=== PATIENT | male | born 1985 | race Two or more races ===

== ENCOUNTER 2019-12-05 01:41 | Emergency (ER) | payer SELFPAY ==
[2019-12-05 01:54] VITALS: BP 137/81
[2019-12-05 02:11] LABS: APPEARANCE,URINE CLOUDY; BILIRUBIN,URINE NEGATIVE (NEGATIVE); COLOR,URINE YELLOW; GLUCOSE, URINE NEGATIVE (NEGATIVE); KETONES,URINE NEGATIVE (NEGATIVE); LEUKOCYTE ESTERASE,URINE NEGATIVE (NEGATIVE); NITRITE,URINE NEGATIVE (NEGATIVE); PROTEIN,URINE NEGATIVE (NEGATIVE); URINE SPECIFIC GRAVITY 1.012; UROBILINOGEN,URINE NEGATIVE mg/dL (<2.0)
[2019-12-05 02:28] LABS: ABSOLUTE EOSINOPHILS # (AUTO) 0.2 10^3/uL (0.0-0.6); ABSOLUTE LYMPHOCYTES (AUTO) 1.8 10^3/uL (0.5-4.7); ABSOLUTE MONOCYTES (AUTO) 0.4 10^3/uL (0.1-1.4); ABSOLUTE NEUT (AUTO) 3.1 10^3/uL (1.7-8.2); BASOPHILS % (AUTO) 0.6 % (0-2); EOSINOPHILS % (AUTO) 4.3 % (0-6); HEMATOCRIT 41.3 % (37.9-51.0); HEMOGLOBIN 15.1 g/dL (13.5-17.0); LYMPHOCYTES % (AUTO) 31.6 % (13-45); MEAN CORPUSCULAR HEMOGLOBIN 32.3 pg (27.0-33.4); MEAN CORPUSCULAR HGB CONC 36.5 g/dL (32.0-36.0); MEAN CORPUSCULAR VOLUME 89 fl (80-97); MONOCYTES % (AUTO) 7.5 % (3-13); PLATELET COUNT 237 10^3/uL (150-450); RED BLOOD COUNT 4.66 10^6/uL (4.35-5.55); TOTAL CELLS COUNTED % (AUTO) 100 %; WHITE BLOOD COUNT 5.6 10^3/uL (4.0-10.5)
[2019-12-05 02:36] LABS: ALBUMIN 4.3 g/dL (3.5-5.0); ALKALINE PHOSPHATASE 71 U/L (38-126); ANION GAP 8 (5-19); ASPARTATE AMINO TRANSFERASE 29 U/L (17-59); BILIRUBIN,TOTAL 0.5 mg/dL (0.2-1.3); BLOOD UREA NITROGEN 13 mg/dL (7-20); CALCIUM 9.2 mg/dL (8.4-10.2); CARBON DIOXIDE 29 mmol/L (22-30); CHLORIDE 102 mmol/L (98-107); GLUCOSE 100 mg/dL (75-110); POTASSIUM 4.3 mmol/L (3.6-5.0); TOTAL PROTEIN 7.7 g/dL (6.3-8.2)
== END 2019-12-05 02:51 | disposition left against medical advice (07) ==
LOC: ER 01:41
DX: Z53.21 Procedure and treatment not carried out due to patient leaving prior to being seen by health care provider (principal)
CPT/HCPCS: 36415; 80053; 81001; 83690; 85025

== ENCOUNTER 2020-08-05 02:49 | Emergency (ER) | payer SELFPAY ==
[2020-08-05 04:21] LABS: APPEARANCE,URINE CLOUDY; BILIRUBIN,URINE NEGATIVE (NEGATIVE); COLOR,URINE YELLOW; GLUCOSE, URINE NEGATIVE (NEGATIVE); KETONES,URINE NEGATIVE (NEGATIVE); LEUKOCYTE ESTERASE,URINE NEGATIVE (NEGATIVE); NITRITE,URINE NEGATIVE (NEGATIVE); PROTEIN,URINE NEGATIVE (NEGATIVE); URINE SPECIFIC GRAVITY 1.016; UROBILINOGEN,URINE NEGATIVE mg/dL (<2.0)
[2020-08-05 04:27] LABS: ABSOLUTE EOSINOPHILS # (AUTO) 0.1 10^3/uL (0.0-0.6); ABSOLUTE LYMPHOCYTES (AUTO) 1.1 10^3/uL (0.5-4.7); ABSOLUTE MONOCYTES (AUTO) 0.3 10^3/uL (0.1-1.4); ABSOLUTE NEUT (AUTO) 4.9 10^3/uL (1.7-8.2); BASOPHILS % (AUTO) 0.5 % (0-2); EOSINOPHILS % (AUTO) 1.1 % (0-6); HEMATOCRIT 43.3 % (37.9-51.0); HEMOGLOBIN 15.2 g/dL (13.5-17.0); LYMPHOCYTES % (AUTO) 17.2 % (13-45); MEAN CORPUSCULAR HGB CONC 35.2 g/dL (32.0-36.0); MEAN CORPUSCULAR VOLUME 88 fl (80-97); MONOCYTES % (AUTO) 5.2 % (3-13); PLATELET COUNT 219 10^3/uL (150-450); RED BLOOD COUNT 4.91 10^6/uL (4.35-5.55); RED CELL DISTRIBUTION WIDTH 12.6 % (11.5-14.0); TOTAL CELLS COUNTED % (AUTO) 100 %; WHITE BLOOD COUNT 6.4 10^3/uL (4.0-10.5)
[2020-08-05 04:45] LABS: ALBUMIN 4.6 g/dL (3.5-5.0); ALKALINE PHOSPHATASE 75 U/L (38-126); ANION GAP 8 (5-19); ASPARTATE AMINO TRANSFERASE 38 U/L (17-59); BILIRUBIN,DIRECT 0.2 mg/dL (0.0-0.4); BILIRUBIN,TOTAL 0.7 mg/dL (0.2-1.3); BLOOD UREA NITROGEN 13 mg/dL (7-20); CALCIUM 9.7 mg/dL (8.4-10.2); CARBON DIOXIDE 29 mmol/L (22-30); CHLORIDE 99 mmol/L (98-107); GLUCOSE 118 mg/dL (75-110); POTASSIUM 4.7 mmol/L (3.6-5.0); TOTAL PROTEIN 7.8 g/dL (6.3-8.2)
--- NOTE | 2020-08-05 07:11 | ER Document Report ---
Entered by SHARON SOLORIO SCRIBE 08/05/20 0658 Acting as scribe for:ARLENE VILLALBA MD ED GI/ - General Chief Complaint: Abdominal Pain Stated Complaint: ABDOMINAL PAIN ALL OVER Time Seen by Provider: 08/05/20 06:56 Primary Care Provider: JUSTINA LATIF MD [Primary Care Provider] - Follow up as needed Mode of Arrival: Ambulatory Information source: Patient Notes: This 34 year old male patient with a history of gastritis and GERD presents to the ED today with complaints of RUQ abdominal pain that started after eating rice and cactus for dinner around 1900 last night. Patient states that there is no spice involved with the meal and that he eats it often without any prior issues. He reports that the pain radiates towards his back, but denies nausea, vomiting, fever, or chills. Denies history of any gallbladder issues. TRAVEL OUTSIDE OF THE [place] IN LAST 30 DAYS: No - Related Data Allergies/Adverse Reactions: No Known Allergies Allergy (Verified 08/05/20 03:23) Past Medical History - General Information source: Patient, [facility] Records - Social History Smoking Status: Never Smoker Cigarette use (# per day): No Chew tobacco use (# tins/day): No Smoking Education Provided: No Frequency of alcohol use: None Drug Abuse: None Occupation: Construction Lives with: Spouse/Significant other Family History: Reviewed & Not Pertinent Patient has suicidal ideation: No Patient has homicidal ideation: No - Past Medical History Cardiac Medical History: Reports: Hx Hypercholesterolemia GI Medical History: Reports: Hx Gastritis, Hx Gastroesophageal Reflux Disease Psychiatric Medical History: Reports: Hx Anxiety Past Surgical History: Reports: None - Immunizations Hx Diphtheria, Pertussis, Tetanus Vaccination: No Review of Systems - Review of Systems Constitutional: See HPI. denies: Chills, Fever EENT: No symptoms reported Cardiovascular: No symptoms reported Respiratory: No symptoms reported Gastrointestinal: See HPI, Abdominal pain. denies: Nausea, Vomiting Genitourinary: No symptoms reported Male Genitourinary: No symptoms reported Musculoskeletal: See HPI, Back pain Skin: No symptoms reported Hematologic/Lymphatic: No symptoms reported Neurological/Psychological: No symptoms reported -: Yes All other systems reviewed and negative Physical Exam - Vital signs Vitals: Temp Pulse Resp BP Pulse Ox 97.5 F 87 20 128/80 H 98 08/05/20 05:14 08/05/20 05:14 08/05/20 05:14 08/05/20 05:14 08/05/20 05:14 - General General appearance: Appears well, Alert In distress: None - HEENT Head: Normocephalic, Atraumatic Eyes: Normal Pupils: PERRL - Respiratory Respiratory status: No respiratory distress Chest status: Nontender Breath sounds: Normal Chest palpation: Normal - Cardiovascular Rhythm: Regular Heart sounds: Normal auscultation Murmur: No - Abdominal Inspection: Normal Distension: No distension Bowel sounds: Hyperactive Tenderness: Nontender - Abdomen soft Organomegaly: No organomegaly - Back Back: Normal, Nontender - Extremities General upper extremity: Normal inspection General lower extremity: Normal inspection. No: Edema - Neurological Neuro grossly intact: Yes Orientation: AAOx4 Lauren Coma Scale Eye Opening: Spontaneous Lauren Coma Scale Verbal: Oriented Lauren Coma Scale Motor: Obeys Commands [place] Coma Scale Total: 15 - Psychological Associated symptoms: Normal affect, Normal mood - Skin Skin Temperature: Warm Skin Moisture: Dry Skin Color: Normal Course - Vital Signs Vital signs: Temp Pulse Resp BP Pulse Ox 97.5 F 87 20 128/80 H 98 08/05/20 05:14 08/05/20 05:14 08/05/20 05:14 08/05/20 05:14 08/05/20 05:14 - Laboratory Result Diagrams: 08/05/20 03:45 08/05/20 03:45 Laboratory results interpreted by me: 08/05/20 03:45 Sodium 135.5 L Glucose 118 H ALT 70 H - Diagnostic Test Radiology reviewed: Image reviewed, Reports reviewed - Gallbladder ultrasound shows stones with sludge, no gallbladder wall thickening, no pericholecystic fluid. Common bile duct is normal. Hepatic steatosis. Discharge - Discharge Clinical Impression: Cholelithiasis without cholecystitis, Gallbladder sludge Abdominal pain Qualifiers: Abdominal location: upper abdomen, unspecified Qualified Code(s): R10.10 - Upper abdominal pain, unspecified Condition: Stable Disposition: HOME, SELF-CARE Additional Instructions: Gallbladder Disease Your evaluation shows evidence of gallbladder disease. The gallbladder is a pouch under the liver which stores bile. Stones, infection, or irritation of the gallbladder cause attacks of pain. Certain foods -- fats in particular -- may provoke attacks. The usual treatment for gallbladder disease is surgical removal of the gallbladder -- called a cholecystectomy. You will be referred to a physician qualified to advise you on the best treatment for your problem. Hospitalization is not necessary. Take clear liquids only until you are painfree. After that, you should stay on a low-fat diet, with frequent SMALL m eals. Call the doctor or return at once if you develop severe pain, repeated vomiting, fever, or jaundice (a yellow color in the skin and whites of the eyes). Avoid fried, fatty meals. Avoid spicy meals. Eat small meals. Call [facility] to schedule a follow-up appointment to review your ultrasound findings. Follow-up with Dr. Latif this week for recheck of your gallbladder symptoms. RETURN TO THE EMERGENCY ROOM IF ANY NEW OR WORSENING SYMPTOMS. Referrals: JUSTINA LATIF MD [Primary Care Provider] - Follow up as needed [facility] [Provider Group] - Follow up as needed I personally performed the services described in the documentation, reviewed and edited the documentation which was dictated to the scribe in my presence, and it accurately records my words and actions.
--- NOTE | 2020-08-05 09:21 | RADIOLOGY REPORT (SQ) ---
EXAM DESCRIPTION: U/S ABDOMEN LIMITED W/O DOP IMAGES COMPLETED DATE/TIME: 08/05/2020 9:09 am REASON FOR STUDY: Postprandial right upper quadrant abdominal pain COMPARISON: None. TECHNIQUE: Dynamic and static grayscale images acquired of the abdomen and recorded on PACS. Additio nal selected color Doppler and spectral images recorded. LIMITATIONS: None. FINDINGS: PANCREAS: The visualized portions of the pancreas appear normal. LIVER: Coarse and heterogeneous echotexture of the hepatic parenchyma associated with attenuation of the far field. LIVER VASCULATURE: Normal hepatopetal directional flow in the portal vein. GALLBLADDER: There is a combination of sludge in the calculi within the gallbladder lumen. The gallb ladder wall is normal in thickness. There is no pericholecystic fluid. ULTRASOUND-DETECTED VILLAR'S SIGN: Negative. INTRAHEPATIC DUCTS AND COMMON DUCT: The common bile duct measures 4.3 mm in diameter. There is no di latation of the intrahepatic ducts. INFERIOR VENA CAVA: Not assessed. AORTA: Not assessed. RIGHT KIDNEY: The right kidney measures 9.9 cm in length. There is no hydronephrosis. PERITONEAL AND RIGHT PLEURAL SPACE: No ascites or effusions. OTHER: No other findings. IMPRESSION: 1. Coarse and heterogeneous echotexture of the hepatic parenchyma associated with atten uation of the far field. These findings are suggestive of underlying diffuse hepatocellular disease most commonly hepatic steatosis. 2. Cholelithiasis and sludge without other associated ancillary findings to indicate an acute cholec ystitis. TECHNICAL DOCUMENTATION: JOB ID: [id number] 2010 [employer]- All Rights Reserved Reading location - IP/workstation name: [email or web address]
[2020-08-05 10:41] VITALS: BP 120/80
== END 2020-08-05 10:34 | disposition home or self-care (01) ==
LOC: ER 02:49
DX: K80.20 Calculus of gallbladder without cholecystitis without obstruction (principal); K82.8 Other specified diseases of gallbladder; K76.0 Fatty (change of) liver, not elsewhere classified; R10.11 Right upper quadrant pain; M54.9 Dorsalgia, unspecified; Z87.19 Personal history of other diseases of the digestive system
CPT/HCPCS: 36415; 76705; 80053; 81001; 83690; 85025; 99284

== ENCOUNTER 2020-09-18 07:20 | Observation (INO) | payer SELFPAY ==
[2020-09-18] MEDS ORDERED: NEOSTIGMINE METHYLSULFATE 10 MG/10 ML VIAL ONE (10:23)
[2020-09-18] MEDS ORDERED: GLYCOPYRROLATE 1 MG/5 ML VIAL ONE (10:23)
[2020-09-18] MEDS ORDERED: KETOROLAC TROMETHAMINE INJ/PF 30 MG/1 ML SDV IV ONE (10:59)
[2020-09-18] MEDS ORDERED: NORMAL SALINE 1000 ML 1,000 ML IV ONE (10:59)
[2020-09-18 11:04] LABS: ABSOLUTE EOSINOPHILS # (AUTO) 0.2 10^3/uL (0.0-0.6); ABSOLUTE LYMPHOCYTES (AUTO) 2.1 10^3/uL (0.5-4.7); ABSOLUTE MONOCYTES (AUTO) 0.6 10^3/uL (0.1-1.4); ABSOLUTE NEUT (AUTO) 4.8 10^3/uL (1.7-8.2); BASOPHILS % (AUTO) 0.4 % (0-2); HEMATOCRIT 44.4 % (37.9-51.0); HEMOGLOBIN 15.8 g/dL (13.5-17.0); LYMPHOCYTES % (AUTO) 27.7 % (13-45); MEAN CORPUSCULAR HEMOGLOBIN 31.1 pg (27.0-33.4); MEAN CORPUSCULAR HGB CONC 35.6 g/dL (32.0-36.0); MEAN CORPUSCULAR VOLUME 87 fl (80-97); MONOCYTES % (AUTO) 7.7 % (3-13); PLATELET COUNT 221 10^3/uL (150-450); RED BLOOD COUNT 5.08 10^6/uL (4.35-5.55); RED CELL DISTRIBUTION WIDTH 12.7 % (11.5-14.0); SEGMENTED NEUTROPHILS % (AUTO) 62.2 % (42-78); TOTAL CELLS COUNTED % (AUTO) 100 %; WHITE BLOOD COUNT 7.7 10^3/uL (4.0-10.5)
[2020-09-18 11:17] LABS: ALBUMIN 4.7 g/dL (3.5-5.0); ALKALINE PHOSPHATASE 86 U/L (38-126); ANION GAP 9 (5-19); ASPARTATE AMINO TRANSFERASE 40 U/L (17-59); BILIRUBIN,DIRECT 0.2 mg/dL (0.0-0.4); BILIRUBIN,TOTAL 1.1 mg/dL (0.2-1.3); BLOOD UREA NITROGEN 17 mg/dL (7-20); CALCIUM 9.7 mg/dL (8.4-10.2); CARBON DIOXIDE 26 mmol/L (22-30); CHLORIDE 104 mmol/L (98-107); GLUCOSE 90 mg/dL (75-110); POTASSIUM 4.6 mmol/L (3.6-5.0); TOTAL PROTEIN 8.2 g/dL (6.3-8.2)
--- NOTE | 2020-09-18 11:26 | ER Document Report ---
Entered by SHARON SOLORIO SCRIBE 09/18/20 1053 Acting as scribe for:ARLENE VILLALBA MD ED GI/ - General Chief Complaint: Abdominal Pain Stated Complaint: ABDOMINAL PAIN Time Seen by Provider: 09/18/20 10:48 Mode of Arrival: Ambulatory Information source: Patient Notes: This 34 year old male patient with a history of gastritis and GERD presents to the ED today with complaints of intermittent RUQ abdominal pain that started x2 days ago. Patient states that it is the same pain that he had on his last visit here on 08/05. He had a gallbladder ultrasound at that time that showed cholelithiasis without cholecystitis and sludge. at bedside reports that the patient has been seen by the surgeon since that visit, but they are waiting for an appointment for further instructions. Patient states that the pain radiates to his back. Denies nausea or vomiting. Last meal was 8 PM last night, last p.o. fluids was 1 AM today. TRAVEL OUTSIDE OF THE [place] IN LAST 30 DAYS: No - Related Data Allergies/Adverse Reactions: No Known Allergies Allergy (Verified 08/05/20 03:23) Home Medications: Lexapro Past Medical History - General Information source: Patient, [facility] Records - Social History Smoking Status: Never Smoker Cigarette use (# per day): No Chew tobacco use (# tins/day): No Smoking Education Provided: No Frequency of alcohol use: None Drug Abuse: None Lives with: Spouse/Significant other Family History: Reviewed & Not Pertinent - Past Medical History Cardiac Medical History: Reports: Hx Hypercholesterolemia GI Medical History: Reports: Hx Gastritis, Hx Gastroesophageal Reflux Disease Psychiatric Medical History: Reports: Hx Anxiety - Immunizations Hx Diphtheria, Pertussis, Tetanus Vaccination: No Review of Systems - Review of Systems Constitutional: No symptoms reported EENT: No symptoms reported Cardiovascular: No symptoms reported Respiratory: No symptoms reported Gastrointestinal: See HPI, Abdominal pain. denies: Nausea, Vomiting Genitourinary: No symptoms reported Male Genitourinary: No symptoms reported Musculoskeletal: See HPI, Back pain Skin: No symptoms reported Hematologic/Lymphatic: No symptoms reported Neurological/Psychological: No symptoms reported -: Yes All other systems reviewed and negative Physical Exam - Vital signs Vitals: Temp Pulse Resp BP Pulse Ox 97.6 F 66 16 124/84 98 09/18/20 07:22 09/18/20 07:22 09/18/20 07:22 09/18/20 07:22 09/18/20 07:22 Interpretation: Normal - General General appearance: Appears well, Alert In distress: None - HEENT Head: Normocephalic, Atraumatic Eyes: Normal Extraocular movements intact: Yes Pupils: PERRL Neck: Normal, Supple - Respiratory Respiratory status: No respiratory distress Chest status: Nontender Breath sounds: Normal Chest palpation: Normal - Cardiovascular Rhythm: Regular Heart sounds: Normal auscultation Murmur: No - Abdominal Inspection: Normal Distension: No distension Bowel sounds: Normal Tenderness: Tender - Diffuse RUQ tenderness to palpation, Other - Abdomen soft Organomegaly: No organomegaly - Back Back: Normal, Nontender - Extremities General upper extremity: Normal inspection General lower extremity: Normal inspection. No: Edema - Neurological Neuro grossly intact: Yes Orientation: AAOx4 Lauren Coma Scale Eye Opening: Spontaneous [place] Coma Scale Verbal: Oriented [place] Coma Scale Motor: Obeys Commands [place] Coma Scale Total: 15 - Psychological Associated symptoms: Normal affect, Normal mood - Skin Skin Temperature: Warm Skin Moisture: Dry Skin Color: Normal Course - Vital Signs Vital signs: Temp Pulse Resp BP Pulse Ox 97.6 F 66 16 118/71 98 09/18/20 15:02 09/18/20 15:02 09/18/20 15:02 09/18/20 15:02 09/18/20 15:02 - Laboratory Results Result Diagrams: 09/18/20 10:45 09/18/20 10:45 Laboratory Results Interpreted: 09/18/20 10:45 ALT 61 H Critical Laboratory Results Reviewed: No Critical Results - Radiology Results Radiology Results Interpreted: 09/18/20 12:37 Ultrasound showed thickened edematous gallbladder wall with stones and sludge and pericholecystic fluid Critical Radiology Results Reviewed: Yes Attending or Supervising Physician who Reviewed Radiology: ARLENE VILLALBA - Consults Dr. Grant Time consulted: 12:33 Consulted provider: will come to ER Discharge - Discharge Clinical Impression: Acute calculous cholecystitis Condition: Stable Disposition: ADMITTED INPATIENT Admitting Provider: Surgicalist Unit Admitted: Surgical Floor I personally performed the services described in the documentation, reviewed and edited the documentation which was dictated to the scribe in my presence, and it accurately records my words and actions.
[2020-09-18 11:29] LABS: APPEARANCE,URINE CLEAR; COLOR,URINE STRAW
[2020-09-18 11:30] LABS: BILIRUBIN,URINE NEGATIVE (NEGATIVE); GLUCOSE, URINE NEGATIVE (NEGATIVE); KETONES,URINE NEGATIVE (NEGATIVE); LEUKOCYTE ESTERASE,URINE NEGATIVE (NEGATIVE); NITRITE,URINE NEGATIVE (NEGATIVE); PROTEIN,URINE NEGATIVE (NEGATIVE); URINE SPECIFIC GRAVITY 1.022; UROBILINOGEN,URINE NEGATIVE mg/dL (<2.0)
--- NOTE | 2020-09-18 12:18 | RADIOLOGY REPORT (SQ) ---
EXAM DESCRIPTION: U/S ABDOMEN LIMITED W/O DOP IMAGES COMPLETED DATE/TIME: 09/18/2020 11:34 am REASON FOR STUDY: Stones, sludge, worsening pain COMPARISON: 08/05/2020 TECHNIQUE: Dynamic and static grayscale images acquired of the abdomen and recorded on PACS. Do chavira selected color Doppler and spectral images recorded. LIMITATIONS: None. FINDINGS: PANCREAS: No masses. Visualized pancreatic duct normal caliber. LIVER: Heterogeneous with areas of increased echogenicity. LIVER VASCULATURE: Normal directional flow of the main portal vein and hepatic veins. GALLBLADDER: Multiple gallstones. Sludge. Thickened, edematous gallbladder wall measuring 8 mm. Pe richolecystic fluid. ULTRASOUND-DETECTED VILLAR'S SIGN: Positive. INTRAHEPATIC DUCTS AND COMMON DUCT: CBD and intrahepatic ducts normal caliber. No filling defects. AORTA: No aneurysm. RIGHT KIDNEY: Normal size, 12.6 cm. Normal echogenicity. No solid or suspicious masses. No hydroneph rosis. No calcifications. PERITONEAL AND RIGHT PLEURAL SPACE: No ascites or effusions. OTHER: No other significant findings. IMPRESSION: 1. Cholelithiasis with findings suggestive of cholecystitis. Correlate clinically. 2. Hepatic steatosis. TECHNICAL DOCUMENTATION: JOB ID: [id number] 2010 [employer]- All Rights Reserved Reading location - IP/workstation name: [email or web address]
[2020-09-18] MEDS ORDERED: PIPERACILLIN/TAZOBACTAM 3.375 GM VIAL IV ONE (12:37)
--- NOTE | 2020-09-18 13:17 | RADIOLOGY REPORT (SQ) ---
EXAM DESCRIPTION: CHEST SINGLE VIEW IMAGES COMPLETED DATE/TIME: 09/18/2020 1:00 pm REASON FOR STUDY: Preoperative chest x-ray COMPARISON: None. EXAM PARAMETERS: NUMBER OF VIEWS: One view. TECHNIQUE: Single frontal radiographic view of the chest acquired. RADIATION DOSE: NA LIMITATIONS: None. FINDINGS: LUNGS AND PLEURA: No opacities, masses or pneumothorax. No pleural effusion. MEDIASTINUM AND HILAR STRUCTURES: No masses. Contour normal. HEART AND VASCULAR STRUCTURES: Borderline cardiomegaly. Normal vasculature. BONES: No acute findings. HARDWARE: None in the chest. OTHER: No other significant finding. IMPRESSION: 1. NO ACUTE RADIOGRAPHIC FINDING IN THE CHEST. 2. Borderline cardiomegaly. No evidence for failure. TECHNICAL DOCUMENTATION: JOB ID: [id number] 2010 [employer]- All Rights Reserved Reading location - IP/workstation name: [email or web address]
--- NOTE | 2020-09-18 13:34 | PDOC H&P ---
History of Present Illness Admission Date/PCP: 09/18/20 13:01 JUSTINA LATIF MD Patient complains of: Abdominal pain History of Present Illness: JUSTINA MARX is a 34 year old male Presents emergency room via ground rescue complaining of postprandial abdominal pain right upper quadrant radiating to the back. Patient had similar symptoms 1 month ago, seen in the emergency department, diagnosed with symptomatic cholelithiasis, sent home, with arrangements to see a surgeon on outpatient basis. Arrangements were made for him to have a interval cholecystectomy but patient developed symptoms in the interim. Repeat ultrasonography today showed gallstones without ductal dilatation. Laboratory profile essentially unremarkable surgery was consulted and patient was advised admission Past Medical History Past Medical History: Gastritis Cardiac Medical History: Reports: Hyperlipidema GI Medical History: Reports: Gastroesophageal Reflux Disease Past Surgical History Past Surgical History: Reports: None Social History Information Source: Patient Lives with: Spouse/Significant other Smoking Status: Never Smoker Electronic Cigarette use?: No Frequency of Alcohol Use: None Hx Recreational Drug Use: No Family History Family History: None, Reviewed & Not Pertinent Parental Family History Reviewed: No Children Family History Reviewed: No Sibling(s) Family History Reviewed.: No Medication/Allergy Home Medications: Clonazepam [Klonopin 1 mg Tablet] 1 mg PO ASDIR #30 tablet 08/11/14 Allergies/Adverse Reactions: No Known Allergies Allergy (Verified 08/05/20 03:23) Review of Systems Constitutional: PRESENT: as per HPI Eyes: ABSENT: visual disturbances Ears: ABSENT: hearing changes Cardiovascular: ABSENT: chest pain, dyspnea on exertion, edema, orthropnea, palpitations Gastrointestinal: PRESENT: as per HPI Genitourinary: ABSENT: dysuria, hematuria Musculoskeletal: ABSENT: joint swelling Integumentary: ABSENT: rash, wounds Neurological: ABSENT: abnormal gait, abnormal speech, confusion, dizziness, focal weakness, syncope Physical Exam Vital Signs: Temp Pulse Resp BP Pulse Ox 97.6 F 66 16 124/84 98 09/18/20 07:22 09/18/20 07:22 09/18/20 07:22 09/18/20 07:22 09/18/20 07:22 Intake & Output 09/17/20 09/18/20 09/19/20 06:59 06:59 06:59 Intake Total 1000 Balance 1000 Weight 82.1 kg General appearance: PRESENT: no acute distress Head exam: PRESENT: normocephalic Eye exam: PRESENT: EOMI Mouth exam: PRESENT: dry mucosa Neck exam: PRESENT: full ROM Respiratory exam: PRESENT: clear to auscultation stephane Cardiovascular exam: PRESENT: RRR Pulses: PRESENT: normal carotid pulses, normal femoral pulses GI/Abdominal exam: PRESENT: soft - Tender right upper quadrant with guarding Rectal exam: PRESENT: deferred Extremities exam: PRESENT: full ROM Musculoskeletal exam: PRESENT: full ROM Neurological exam: PRESENT: oriented to person, oriented to place, oriented to time, oriented to situation Psychiatric exam: PRESENT: appropriate affect Skin exam: PRESENT: dry Results Laboratory Results: 09/18/20 10:45 09/18/20 10:45 09/18/20 09/18/20 09/18/20 10:45 10:45 10:45 WBC 7.7 RBC 5.08 Hgb 15.8 Hct 44.4 MCV 87 MCH 31.1 MCHC 35.6 RDW 12.7 Plt Count 221 Seg Neutrophils % 62.2 Sodium 138.5 Potassium 4.6 Chloride 104 Carbon Dioxide 26 Anion Gap 9 BUN 17 Creatinine 0.81 Est GFR ( Amer) > 60 Glucose 90 Calcium 9.7 Total Bilirubin 1.1 AST 40 Alkaline Phosphatase 86 Total Protein 8.2 Albumin 4.7 Lipase 114.7 Urine Color Urine Appearance Urine pH Ur Specific [place] Urine Protein Urine Glucose (UA) Urine Ketones Urine Blood Urine Nitrite Ur Leukocyte Esterase Urine WBC (Auto) 09/18/20 10:45 WBC RBC Hgb Hct MCV MCH MCHC RDW Plt Count Seg Neutrophils % Sodium Potassium Chloride Carbon Dioxide Anion Gap BUN Creatinine Est GFR ( Amer) Glucose Calcium Total Bilirubin AST Alkaline Phosphatase Total Protein Albumin Lipase Urine Color STRAW Urine Appearance CLEAR Urine pH 6.0 Ur Specific [place] 1.022 Urine Protein NEGATIVE Urine Glucose (UA) NEGATIVE Urine Ketones NEGATIVE Urine Blood NEGATIVE Urine Nitrite NEGATIVE Ur Leukocyte Esterase NEGATIVE Urine WBC (Auto) 0 Impressions: Abdomen Ultrasound 09/18/20 11:00 IMPRESSION: 1. Cholelithiasis with findings suggestive of cholecystitis. Correlate clinically. 2. Hepatic steatosis. Chest X-Ray 09/18/20 12:39 IMPRESSION: 1. NO ACUTE RADIOGRAPHIC FINDING IN THE CHEST. 2. Borderline cardiomegaly. No evidence for failure. Assessment & Plan - Diagnosis (1) Acute calculous cholecystitis Is this a current diagnosis for this admission?: Yes Plan: Impression: Symptomatic cholelithiasis with cholecystitis in otherwise healthy male. Plan: 1. In light of patient's multiple visits to the emergency department, we will proceed with tentative surgical management. 2. Admit to surgical service, keep n.p.o., IV fluids, IV antibiotics, rapid Covid test. Plan for laparoscopic, possible open cholecystectomy, 1 hour[facility], general anesthesia, by Dr. Grant. The risk benefits and alternatives to the planned procedure explained to the patient. Patient expresses understanding and agrees to proceed. - Time Time Spent: 30 to 50 Minutes Critical Time spent with patient: Less than 15 minutes Medications reviewed and adjusted accordingly: Yes Anticipated Discharge Disposition: Home, Self Care Anticipated Discharge Timeframe: within 48 hours
[2020-09-18] MEDS ORDERED: CEFAZOLIN 2 GM/D5W RTU 2 GM/50 ML RTUPB IV ONE (14:00)
[2020-09-18] MEDS: RINGERS SOLUTION,LACTATED 1,000 ML IV PRN (14:09)
[2020-09-18] MEDS ORDERED: CEFAZOLIN 1 GM/D5W RTU 1 GM/50 ML RTUPB IV ONE (14:58)
[2020-09-18] MEDS ORDERED: BUPIVACAINE HCL 0.25 % INJ/PF (2.5 MG/1 ML) 30 ML VIAL ONE (15:14)
--- NOTE | 2020-09-18 15:39 | EKG REPORT ---
SEVERITY:- BORDERLINE ECG - SINUS RHYTHM BORDERLINE INFERIOR Q WAVES : Confirmed by: Jair Comer MD 18-Sep-2020 15:38:05
[2020-09-18] MEDS ORDERED: LIDOCAINE 2% INJ-PF (20 MG/ML) 10 ML AMPUL ONE (15:46)
[2020-09-18] MEDS ORDERED: FENTANYL CITRATE INJ/PF 100 MCG/2 ML AMPUL ONE (15:47)
[2020-09-18] MEDS ORDERED: HYDROMORPHONE HCL INJ/PF 2 MG/ML AMPULE ONE (15:47)
[2020-09-18] MEDS ORDERED: MIDAZOLAM 2 MG/2 ML INJ ONE (15:47)
[2020-09-18] MEDS ORDERED: DEXAMETHASONE SOD PHOSPHATE INJ 4 MG/1 ML VIAL ONE (15:47)
[2020-09-18] MEDS ORDERED: ONDANSETRON HCL INJ/PF 4 MG/2 ML SDV ONE (15:47)
[2020-09-18] MEDS ORDERED: PROPOFOL INJ 200 MG/20 ML VIAL IV ONE (15:47)
[2020-09-18] MEDS ORDERED: PROMETHAZINE HCL INJ 25 MG/1 ML VIAL IV PRN ×2 (15:57)
[2020-09-18] MEDS ORDERED: MEPERIDINE HCL/PF INJ 25 MG/1 ML DISP.SYRIN IV PRN (15:57)
[2020-09-18] MEDS ORDERED: DIPHENHYDRAMINE HCL 50 MG/ML VIAL IV PRN (15:57)
[2020-09-18] MEDS ORDERED: MORPHINE SULFATE 10 MG/ML INJ IV PRN (15:57)
[2020-09-18] MEDS ORDERED: OXYCODONE-ACETAMINOPHEN 5-325 MG TABLET PO PRN ×3 (15:57→17:07)
[2020-09-18] MEDS ORDERED: FENTANYL CITRATE INJ/PF 100 MCG/2 ML AMPUL IV PRN ×3 (15:57)
--- NOTE | 2020-09-18 17:06 | Operative Report ---
Operative Report DATE OF SURGERY: 09/18/20 PREOPERATIVE DIAGNOSIS: Symptomatic cholelithiasis with cholecystitis POSTOPERATIVE DIAGNOSIS: Same OPERATION: Laparoscopic cholecystectomy SURGEON: KELTON SCHMITT ANESTHESIA: GA TISSUE REMOVED OR ALTERED: 1 gallbladder with contents COMPLICATIONS: None ESTIMATED BLOOD LOSS: Scant INTRAOPERATIVE FINDINGS: See below PROCEDURE: The patient was taken to the operating room where general anesthesia was induced. Arms were abducted, abdomen prepped and draped in a sterile fashion with Betadine in anticipation of laparoscopic cholecystectomy. Surgical plan and surgical timeout were conducted. Markings were made on the skin for a for port laparoscopy. Skin was anesthetized with 1% plain lidocaine. A supraumbilical vertical incision was made with a 15 blade, Veress needle inserted the peritoneal cavity, pneumoperitoneum established, Veress needle removed, 5 mm port inserted and a 5 mm flexible scope was inserted. Under direct visualization 3 additional ports were placed one in the subxiphoid, and 2 subcostal position. Findings were significant for an acutely inflamed gallbladder, with edema, and minimal erythema. Graspers were placed on the gallbladder fundus and infundibulum. The neck of the gallbladder was dissected out. The cystic artery and cystic duct were in their usual anatomic location. The cystic duct was identified, clipped twice proximally once distally and divided with scissors. The triangle of Calot low was opened widely. The critical view was obtained. Photographs were obtained. Communicating artery between the cystic duct and the main cystic artery was clipped and now the cystic duct was clipped twice proximally once distally then divided with scissors. The gallbladder was removed from the liver bed using hook cautery dissection. It was removed from the patient through the supraumbilical port site incision. We returned to the peritoneal cavity check for bleeding there was none. Sponge and needle counts are correct. All ports removed under direct visualization, pneumoperitoneum evacuated, and all wounds closed with 3-0 Vicryl, benzoin, and Steri-Strips. Patient tolerated the procedure well, extubated, taken to recovery room in stable condition.
[2020-09-18] MEDS ORDERED: CLONAZEPAM 1 MG TABLET PO PRN (20:24)
[2020-09-18] MEDS ORDERED: SIMVASTATIN 40 MG TABLET PO SCH (22:00)
[2020-09-19] MEDS: RINGERS SOLUTION,LACTATED 1,000 ML IV PRN (01:40)
--- NOTE | 2020-09-19 11:16 | PDOC DISCHARGE SUMMARY ---
General - Admit/Disc Date/PCP Admission Date/Primary Care Provider: 09/18/20 13:01 JUSTINA LATIF MD Discharge Date: 09/19/20 - Discharge Diagnosis Final Diagnosis: acute cholecystitis - Assessment Summary: 34-year-old male admitted to the hospital with acute cholecystitis. The patient underwent cholecystectomy yesterday. He has recovered very well from the surgery. Today, he is ambulating, tolerating a diet, and his pain is controlled with medications. At this time he has reached maximal hospital benefit, and is fit for discharge. - Additional Information Resuscitation Status: Full Code Discharge Diet: As Tolerated Discharge Activity: Balance Activity w/Rest, No Lifting Over 10 Pounds, No Lifting/Push/Pulling Referrals: JUSTINA LATIF MD [Primary Care Provider] - Follow up as needed Prescriptions: Hydrocodone/Acetaminophen [[place] 10-325 mg Tablet] 1 tab PO Q6HP PRN #14 tablet PRN Reason: For Pain Home Medications: Clonazepam [Klonopin 1 mg Tablet] 1 mg PO DAILYP PRN 09/18/20 Omeprazole Magnesium [Prilosec Otc] 20 mg PO DAILY 09/18/20 Simvastatin [Zocor 40 mg Tablet] 40 mg PO QHS 09/18/20 Hydrocodone/Acetaminophen [[place] 10-325 mg Tablet] 1 tab PO Q6HP PRN #14 tablet 09/19/20 Additional Information: Discharge home. Diet as tolerated. Activity: No lifting greater than 10 pounds x 2 weeks. Follow-up with [facility] in 7 to 10 days. Okay to shower. [place] 10/325 mg p.o. every 6 hours as needed for pain. History of Present Illiness History of Present Illness: JUSTINA MARX is a 34 year old male Physical Exam Vital Signs: Temp Pulse Resp BP Pulse Ox 98.0 F 110 H 16 126/63 H 96 09/19/20 07:22 09/19/20 07:22 09/19/20 07:22 09/19/20 07:22 09/19/20 07:22 Intake & Output 09/18/20 09/19/20 09/20/20 06:59 06:59 06:59 Intake Total 3200 Output Total 400 Balance 2800 Weight 82 kg Results Laboratory Results: WBC 7.7 10^3/uL (4.0-10.5) 09/18/20 10:45 RBC 5.08 10^6/uL (4.35-5.55) 09/18/20 10:45 Hgb 15.8 g/dL (13.5-17.0) 09/18/20 10:45 Hct 44.4 % (37.9-51.0) 09/18/20 10:45 MCV 87 fl (80-97) 09/18/20 10:45 MCH 31.1 pg (27.0-33.4) 09/18/20 10:45 MCHC 35.6 g/dL (32.0-36.0) 09/18/20 10:45 RDW 12.7 % (11.5-14.0) 09/18/20 10:45 Plt Count 221 10^3/uL (150-450) 09/18/20 10:45 Lymph % (Auto) 27.7 % (13-45) 09/18/20 10:45 [place] % (Auto) 7.7 % (3-13) 09/18/20 10:45 Eos % (Auto) 2.0 % (0-6) 09/18/20 10:45 Baso % (Auto) 0.4 % (0-2) 09/18/20 10:45 Absolute Neuts (auto) 4.8 10^3/uL (1.7-8.2) 09/18/20 10:45 Absolute Lymphs (auto) 2.1 10^3/uL (0.5-4.7) 09/18/20 10:45 Absolute Monos (auto) 0.6 10^3/uL (0.1-1.4) 09/18/20 10:45 Absolute Eos (auto) 0.2 10^3/uL (0.0-0.6) 09/18/20 10:45 Absolute Basos (auto) 0.0 10^3/uL (0.0-0.2) 09/18/20 10:45 Seg Neutrophils % 62.2 % (42-78) 09/18/20 10:45 Sodium 138.5 mmol/L (137-145) 09/18/20 10:45 Potassium 4.6 mmol/L (3.6-5.0) 09/18/20 10:45 Chloride 104 mmol/L (98-107) 09/18/20 10:45 Carbon Dioxide 26 mmol/L (22-30) 09/18/20 10:45 Anion Gap 9 (5-19) 09/18/20 10:45 BUN 17 mg/dL (7-20) 09/18/20 10:45 Creatinine 0.81 mg/dL (0.52-1.25) 09/18/20 10:45 Est GFR ( Amer) > 60 (>60) 09/18/20 10:45 Est GFR (MDRD) Non-Af > 60 (>60) 09/18/20 10:45 Glucose 90 mg/dL (75-110) 09/18/20 10:45 Calcium 9.7 mg/dL (8.4-10.2) 09/18/20 10:45 Total Bilirubin 1.1 mg/dL (0.2-1.3) 09/18/20 10:45 Direct Bilirubin 0.2 mg/dL (0.0-0.4) 09/18/20 10:45 Neonat Total Bilirubin Not Reportable 09/18/20 10:45 Neonat Direct Bilirubin Not Reportable 09/18/20 10:45 Neonat Indirect Bili Not Reportable 09/18/20 10:45 AST 40 U/L (17-59) 09/18/20 10:45 ALT 61 U/L (<50) H 09/18/20 10:45 Alkaline Phosphatase 86 U/L (38-126) 09/18/20 10:45 Total Protein 8.2 g/dL (6.3-8.2) 09/18/20 10:45 Albumin 4.7 g/dL (3.5-5.0) 09/18/20 10:45 Lipase 114.7 U/L (23-300) 09/18/20 10:45 Urine Color STRAW 09/18/20 10:45 Urine Appearance CLEAR 09/18/20 10:45 Urine pH 6.0 (5.0-9.0) 09/18/20 10:45 Ur Specific [place] 1.022 09/18/20 10:45 Urine Protein NEGATIVE mg/dL (NEGATIVE) 09/18/20 10:45 Urine Glucose (UA) NEGATIVE mg/dL (NEGATIVE) 09/18/20 10:45 Urine Ketones NEGATIVE mg/dL (NEGATIVE) 09/18/20 10:45 Urine Blood NEGATIVE (NEGATIVE) 09/18/20 10:45 Urine Nitrite NEGATIVE (NEGATIVE) 09/18/20 10:45 Urine Bilirubin NEGATIVE (NEGATIVE) 09/18/20 10:45 Urine Urobilinogen NEGATIVE mg/dL (<2.0) 09/18/20 10:45 Ur Leukocyte Esterase NEGATIVE (NEGATIVE) 09/18/20 10:45 Urine WBC (Auto) 0 /HPF 09/18/20 10:45 Urine Mucus (Auto) OCC /LPF 09/18/20 10:45 Urine Ascorbic Acid NEGATIVE (NEGATIVE) 09/18/20 10:45 Influenza A (RT-PCR) NEGATIVE (NEGATIVE) 09/18/20 12:10 Influenza B (RT-PCR) NEGATIVE (NEGATIVE) 09/18/20 12:10 RSV (RT-PCR) NEGATIVE (NEGATIVE) 09/18/20 12:10 SARS-CoV-2 Rap RNA(RT-PCR) NEGATIVE (NEGATIVE) 09/18/20 12:10 Impressions: Abdomen Ultrasound 09/18/20 11:00 IMPRESSION: 1. Cholelithiasis with findings suggestive of cholecystitis. Correlate clinically. 2. Hepatic steatosis. Chest X-Ray 09/18/20 12:39 IMPRESSION: 1. NO ACUTE RADIOGRAPHIC FINDING IN THE CHEST. 2. Borderline cardiomegaly. No evidence for failure.
[2020-09-19 12:15] VITALS: BP 118/71
[2020-09-20] MEDS ORDERED: SUCCINYLCHOLINE CHLORIDE INJ 200 MG/10 ML VIAL ONE (10:23)
[2020-09-20] MEDS ORDERED: GLYCOPYRROLATE 1 MG/5 ML VIAL ONE (10:23)
[2020-09-20] MEDS ORDERED: NORMAL SALINE INJ/PF 0.9% 10 ML SDV ONE (10:23)
[2020-09-20] MEDS ORDERED: NEOSTIGMINE METHYLSULFATE 10 MG/10 ML VIAL ONE (10:23)
[2020-09-20] MEDS ORDERED: VECURONIUM BROMIDE INJ 10 MG VIAL IV ONE (10:23)
== END 2020-09-19 12:42 | disposition home or self-care (01) ==
LOC: ER 07:20 → INTOOBSV 13:01 → EH 13:01 → 2N 18:25
PROVIDERS: ATTEND Surgery
DX: K80.10 Calculus of gallbladder with chronic cholecystitis without obstruction (principal); K21.9 Gastro-esophageal reflux disease without esophagitis; F41.9 Anxiety disorder, unspecified; E78.5 Hyperlipidemia, unspecified; Z87.19 Personal history of other diseases of the digestive system; Z79.899 Other long term (current) drug therapy; Z20.828 Contact with and (suspected) exposure to other viral communicable diseases; Z01.812 Encounter for preprocedural laboratory examination
CPT/HCPCS: 93005; 99285; 96361; 96374; 36415; 83690; 85025; 0241U ×4; 80053; 81001; 88304 ×2; 71045; 76705; 93010; 47562; G0378 ×2; J2250; J0690; J1100; J3010; J3490 ×4; J1885; J2710; J1170; J0330; J2405; J7030; J7120 ×2; J2704; J2543; C9803; 790; 99140